=== PATIENT | male | born 1965 | race Caucasian/White ===

== ENCOUNTER 2020-12-16 14:16 | Day surgery (SDC) | payer BC ==
[2020-12-15 14:56] LABS: ALANINE AMINOTRANSFERASE 34 U/L (12-78); ALBUMIN 3.6 g/dL (3.4-5.0); ANION GAP 10 mmol/L (5-15); CALCIUM 8.9 mg/dL (8.5-10.1); CHLORIDE 94 mmol/L (98-107); CREATININE 0.72 mg/dL (0.7-1.3)
[2020-12-15 14:58] LABS: ALKALINE PHOSPHATASE 161 U/L (45-117); BILIRUBIN,TOTAL 0.4 mg/dL (0.2-1.0); TOTAL PROTEIN 7.8 g/dL (6.4-8.2)
[~2020-12-16] VITALS: Ht 182.9 cm; Wt 78.1 kg
[~2020-12-16 14:16] MED LIST: LOSA100T14 PO; OMEP-110 PO
[2020-12-16] MEDS ORDERED: CHLORHEXIDINE 15 ML UDC PO ONE (14:30)
[2020-12-16] MEDS ORDERED: LACTATED RINGERS 1,000 ML IV SCH (14:30)
[2020-12-16] MEDS ORDERED: VANCOMYCIN PMX 1GM/200ML 200 ML IV ONE (14:30)
[2020-12-16] MEDS ORDERED: EPINEPHRINE 1 MG/ML, 1ML ONE (18:05)
[2020-12-16] MEDS ORDERED: BUPIVACAINE/PF 0.5% ONE (18:05)
[2020-12-16] MEDS ORDERED: MIDAZOLAM 1 MG/ML, 2ML ONE (18:11)
[2020-12-16] MEDS ORDERED: FENTANYL PF 250 MCG/5ML ONE (18:11)
[2020-12-16] MEDS ORDERED: SUGAMMADEX 200 MG/2 ML IVPush ONE (18:15)
[2020-12-16] MEDS ORDERED: KETOROLAC 30 MG/1 ML IVPush SCH (18:30)
[2020-12-16] MEDS ORDERED: HYDROcodone/APAP 10/325 MG TABLET PO PRN (18:30)
[2020-12-16] MEDS ORDERED: ONDANSETRON 2MG/ML, 2ML IVPush PRN ×2 (18:30→20:00)
[2020-12-16] MEDS ORDERED: HYDROmorphone 1 MG/ML, 1ML INJ IM PRN (18:30)
[2020-12-16] MEDS ORDERED: PROMETHAZINE 25 MG/ML, 1ML IM PRN (18:30)
[2020-12-16] MEDS ORDERED: ACETAMINOPHEN 325 MG TABLET PO PRN ×2 (18:30→20:00)
[2020-12-16] MEDS ORDERED: GLYCOPYRROLATE 0.2MG/1ML, 5ML ONE (19:25)
[2020-12-16] MEDS ORDERED: CEFAZOLIN 1,000 MG ONE (19:25)
[2020-12-16] MEDS ORDERED: DEXAMETHASONE 4 MG/ML, 1ML ONE (19:25)
[2020-12-16] MEDS ORDERED: SUCCINYLCHOLINE 20 MG/ML, 10ML ONE (19:25)
[2020-12-16] MEDS ORDERED: ROCURONIUM 10MG/ML,5ML ONE (19:25)
[2020-12-16] MEDS ORDERED: ONDANSETRON 2MG/ML, 2ML ONE (19:25)
[2020-12-16] MEDS ORDERED: PROPOFOL 10 MG/ML, 20ML ONE (19:25)
[2020-12-16] MEDS ORDERED: NEOSTIGMINE 1 MG/ML, 10ML ONE (19:25)
[2020-12-16] MEDS ORDERED: ALBUTEROL/IPRATROPIUM 2.5MG/0.5MG, 3 ML NPPB PRN (20:00)
[2020-12-16] MEDS ORDERED: ALBUTEROL SULFATE 2.5 MG/3 ML NPPB PRN (20:00)
[2020-12-16] MEDS ORDERED: hydrALAzine 20 MG/ML, 1ML IV PRN (20:00)
[2020-12-16] MEDS ORDERED: HYDROmorphone 1 MG/ML, 1ML INJ IVPush PRN (20:00)
[2020-12-16] MEDS ORDERED: MEPERIDINE/PF 25MG/0.5ML IVPush PRN (20:00)
[2020-12-16] MEDS ORDERED: OXYcodone 5 MG/5 ML ORAL.SOL UDC PO PRN (20:00)
[2020-12-16] MEDS ORDERED: LORazepam 2 MG/ML, 1ML IVPush PRN (20:00)
[2020-12-16] MEDS ORDERED: METHOCARBAMOL 1,000 MG in DEXTROSE 5% 100 ML IV PRN (20:00)
[2020-12-16] MEDS ORDERED: PROMETHAZINE 25 MG SUPP PR PRN (20:00)
[2020-12-16] MEDS ORDERED: PROMETHAZINE 25 MG/ML, 1ML IVPush PRN (20:00)
[2020-12-16] MEDS ORDERED: FENTANYL PF 100 MCG/2ML ONE (20:03)
[2020-12-16] MEDS ORDERED: ACETAMINOPHEN 650 MG/20.3 ML UDC ONE (20:03)
[2020-12-16] MEDS ORDERED: OXYcodone 5 MG/5 ML ORAL.SOL UDC ONE (20:04)
[2020-12-16] MEDS: FENTANYL PF 100 MCG/2ML IV PRN ×2 (20:10→20:18)
[2020-12-16] MEDS ORDERED: LABETALOL 5MG/ML, 20ML ONE (20:14)
[2020-12-16] MEDS: LABETALOL 5MG/ML, 20ML IV PRN ×2 (20:15→20:34)
[2020-12-16] MEDS ORDERED: hydrALAzine 20 MG/ML, 1ML ONE (20:42)
== END 2020-12-16 22:30 | disposition home or self-care (01) ==
LOC: OR 14:16 → 4NE 21:20 → OR 22:30
PROVIDERS: ATTEND Orthopaedic Surgery Orthopaedic Surgery of the Spine
DX: S22.060A Wedge compression fracture of T7-T8 vertebra, initial encounter for closed fracture (principal); S22.070A Wedge compression fracture of T9-T10 vertebra, initial encounter for closed fracture; S22.080A Wedge compression fracture of T11-T12 vertebra, initial encounter for closed fracture; S32.010A Wedge compression fracture of first lumbar vertebra, initial encounter for closed fracture; Z20.822 Contact with and (suspected) exposure to COVID-19; Z79.899 Other long term (current) drug therapy; Z87.891 Personal history of nicotine dependence; X58.XXXA Exposure to other specified factors, initial encounter; Y93.89 Activity, other specified; Y92.89 Other specified places as the place of occurrence of the external cause; Y99.8 Other external cause status
CPT/HCPCS: 22513; 22515; 36415; 72072; 72100; 80053; 84155; 84156; 84165; 84166; 88304; 88311; 94640; C1713; J0171; J0360; J0690; J1100; J1885; J2250; J2405; J2704; J2710; J3010; J3370; U0003; U0005; 76000; G0378; J0330